=== PATIENT | male | born 1975 | race African-American/Black ===

== ENCOUNTER 2018-05-19 10:16 | Emergency (ER) | payer OTHER ==
[2018-05-19 10:22] VITALS: BP 130/82; PULSE 71; TEMP 98.2; BMI 28.8
--- NOTE | 2018-05-19 11:06 | PDOC ---
History of Present Illness - General Chief Complaint: Injury Stated Complaint: JAMMED FINGER Time Seen by Provider: 05/19/18 10:23 History Source: Patient Exam Limitations: No Limitations Past History - Past Medical History Allergies/Adverse Reactions: Allergies Allergy/AdvReac Type Severity Reaction Status Date / Time Penicillins Allergy Verified 05/19/18 10:30 Home Medications: Ambulatory Orders NK [No Known Home Medication] 10/16/15 COPD: No DVT: No Diabetes: No Dialysis: No - Immunization History Td Vaccination: (? 5 YRS) Immunization Up to Date: No - Suicide/Smoking/Psychosocial Hx Smoking Status: Yes Smoking History: Never smoked Have you smoked in the past 12 months: No Number of Cigarettes Smoked Daily: 5 Information on smoking cessation initiated: No Hx Alcohol Use: No Drug/Substance Use Hx: No Substance Use Type: None Trauma Specific PMHX - Complaint Specific PMHX Arthritis: No Back Injury: No Neck Injury: No Hx Sacro Iliac Joint Dysfunction: No *Physical Exam - Vital Signs Last Vital Signs Temp Pulse Resp BP Pulse Ox 98.2 F 71 18 130/82 100 05/19/18 10:19 05/19/18 10:19 05/19/18 10:19 05/19/18 10:19 05/19/18 10:19 - Physical Exam General Appearance: No: Apparent Distress Musculoskeletal: positive: Other (L pinky finger in slightly flexed position with mild swelling at site, slight pain with extension of L pinky finger, L DIP and MCP joint appear normal) Integumentary: positive: Normal Color Neurologic: positive: Fully Oriented, Alert, Normal Mood/Affect Moderate Sedation - Procedure Monitoring Vital Signs: Procedure Monitoring Vital Signs Temperature 98.2 F 05/19/18 10:19 Pulse Rate 71 05/19/18 10:19 Respiratory Rate 18 05/19/18 10:19 Blood Pressure 130/82 05/19/18 10:19 O2 Sat by Pulse Oximetry (%) 100 05/19/18 10:19 ED Treatment Course - RADIOLOGY Radiology Studies Ordered: Category Date Time Status FINGER(S) LEFT [RAD] Stat Radiology 05/19/18 10:29 Taken Medical Decision Making - Medical Decision Making 42 y/o M with no sig pmh presents with jamming L pinky finger today. Mentions was wearing gloves and didn't realize while talking, he jammed his finger against his other hand. Denies other complaints X-ray unremarkable Possible tendon injury Finger placed in finger splint (kept in extension) Referred to orthopedic for further follow-up Patient refused pain meds here 05/19/18 11:19 *DC/Admit/Observation/Transfer Diagnosis at time of Disposition: Sprain of finger of left hand Qualifiers: Encounter type: initial encounter Finger: little finger Sprain of finger site: interphalangeal joint Qualified Code(s): S63.637A - Sprain of interphalangeal joint of left little finger, initial encounter - Discharge Dispostion Disposition: HOME Condition at time of disposition: Stable Decision to Admit order: No - Referrals Referrals: Lester Rodriguez DO [Staff Physician] - Call tomorrow - Patient Instructions Printed Discharge Instructions: DI for Finger Sprain Additional Instructions: Thank you for choosing [facility]. It was a pleasure taking care of you. No fracture was noted on your x-ray Your finger was placed in splint for likely finger sprain You were referred to orthopedic - please call to make appointment for follow-up. You may take Tylenol 650 mg or Motrin 600 mg every 4 hours by mouth as needed for mild to moderate pain. Take Motrin with food. Do not take more than 4000 mg of Tylenol in 1 day. Return to the Emergency Department if your symptoms worsen or persist or have other concerning symptoms. - Post Discharge Activity
== END 2018-05-19 11:14 | disposition home or self-care (01) ==
LOC: JERFT 10:16
PROC: 2W3KX1Z Immobilization of Left Finger using Splint (ICD-10-PCS; principal; 2018-05-19)
DX: S63.637A Sprain of interphalangeal joint of left little finger, initial encounter (principal); X58.XXXA Exposure to other specified factors, initial encounter; Y93.89 Activity, other specified; Y92.89 Other specified places as the place of occurrence of the external cause
CPT/HCPCS: 73140-TC-LT-FY; 99281-25

== ENCOUNTER 2018-09-14 08:46 | Emergency (ER) | payer OTHER ==
[2018-09-14 08:55] VITALS: BP 113/71; PULSE 64; TEMP 98.5; BMI 28.0
[2018-09-14] MEDS ORDERED: DIPHTH,PERTUSS(ACELL),TET 0.5 ML DISP.SYRIN IM ONE ×2 (09:11→09:14)
--- NOTE | 2018-09-14 09:16 | PDOC ---
History of Present Illness - General Chief Complaint: Injury Stated Complaint: LT. EYE LACERATION Time Seen by Provider: 09/14/18 08:58 History Source: Patient Exam Limitations: No Limitations - History of Present Illness Initial Comments: 09/14/18 09:11 43 year old male with no significant medical or surgical history presents with laceration to left eybrow. 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 Denies being struck in the eye, eye pain, blurred vision or foreign body sensation in eye. Unknown tetanus status Timing/Duration: reports: just prior to arrival Severity: Yes: mild Location: reports: face Respiratory Risk Factors: reports: no cause identified Associated Symptoms: reports: denies symptoms Past History - Travel Traveled outside of the country in the last 30 days: No Close contact w/someone who was outside of country & ill: No - Past Medical History Allergies/Adverse Reactions: Allergies Allergy/AdvReac Type Severity Reaction Status Date / Time Penicillins Allergy Verified 09/14/18 08:53 Home Medications: Ambulatory Orders NK [No Known Home Medication] 10/16/15 COPD: No DVT: No Diabetes: No Dialysis: No - Immunization History Td Vaccination: (? 5 YRS) Immunization Up to Date: No - Suicide/Smoking/Psychosocial Hx Smoking Status: Yes Smoking History: Never smoked Have you smoked in the past 12 months: No Number of Cigarettes Smoked Daily: 5 Information on smoking cessation initiated: No Hx Alcohol Use: No Drug/Substance Use Hx: No Substance Use Type: None Review of Systems - Review of Systems Able to Perform ROS?: Yes Is the patient limited Latvian proficient: No Constitutional: No: Chills, Fever, Malaise HEENTM: No: Eye Pain, Blurred Vision, Tearing, Double Vision Respiratory: No: Cough, Shortness of Breath Cardiac (ROS): No: Chest Pain, Lightheadedness Neurological: No: Headache, Numbness *Physical Exam - Vital Signs Last Vital Signs Temp Pulse Resp BP Pulse Ox 98.5 F 64 18 113/71 100 09/14/18 08:51 09/14/18 08:51 09/14/18 08:51 09/14/18 08:51 09/14/18 08:51 - Physical Exam General Appearance: Yes: Nourished, Appropriately Dressed HEENT: positive: EOMI, MIGUEL, Other (<.5cm avulsed abrasion to left medial eyebrow. No ejection of sclera, no foreign body seen , no swelling of lids) Neck: positive: Supple. negative: Lymphadenopathy (R), Lymphadenopathy (L) Respiratory/Chest: positive: Lungs Clear Cardiovascular: positive: Regular Rhythm, Regular Rate Extremity: positive: Normal Capillary Refill Neurologic: positive: Fully Oriented, Normal Mood/Affect, Normal Response Procedures - Laceration/Wound Repair Left Medial Face Wound Length: to 2.5 cm Wound Explored: clean Wound's Depth, Shape: superficial Irrigated w/ Saline: Yes Betadine Prep: No Wound Debrided: minimal Wound Repaired With: Dermabond Sterile Dressing Applied: No Splint Applied: No Sling Applied: No Medical Decision Making - Medical Decision Making 09/14/18 09:15 43 year old male with no significant medical or surgical history presents with laceration to left eyebrow superficial laceration/ abrasion -repair with dermabond -tetanus vaccine given *DC/Admit/Observation/Transfer Diagnosis at time of Disposition: Laceration - Discharge Dispostion Condition at time of disposition: Good Decision to Admit order: No - Referrals - Patient Instructions Printed Discharge Instructions: DI for Laceration Repair With Dermabond Additional Instructions: Please do not wet left eye brow for 24 hours After 24 hours may wash gently with water Return for eye pain, blurred vision or worsening symptoms - Post Discharge Activity Forms/Work/School Notes: Back to Work
== END 2018-09-14 09:26 | disposition home or self-care (01) ==
LOC: JERFT 08:46
PROC: 0HQ1XZZ Repair Face Skin, External Approach (ICD-10-PCS; principal; 2018-09-14)
PROC: 3E0234Z Introduction of Serum, Toxoid and Vaccine into Muscle, Percutaneous Approach (ICD-10-PCS; 2018-09-14)
DX: S01.112A Laceration without foreign body of left eyelid and periocular area, initial encounter (principal); W22.8XXA Striking against or struck by other objects, initial encounter; Y93.H9 Activity, other involving exterior property and land maintenance, building and construction; Y92.414 Local residential or business street as the place of occurrence of the external cause; Y99.0 Civilian activity done for income or pay
CPT/HCPCS: 90715; 99281-25